=== PATIENT | female | born 1955 | race Caucasian/White ===

== ENCOUNTER 2023-10-28 12:35 | Emergency (ER) | payer MEDICAID, MEDICARE ==
[2023-10-28 12:53] VITALS: BP 150/61; PULSE 74; RESP 18; TEMP 97.9
--- NOTE | 2023-10-28 15:10 | ED ---
General Adult HPI - General Source: patient, RN notes reviewed Mode of arrival: ambulatory Limitations: no limitations <Deion Guerrero - Last Filed: 10/28/23 15:08> - General Source: patient, RN notes reviewed Mode of arrival: ambulatory Limitations: no limitations <Ciara Gallardo - Last Filed: 10/28/23 19:10> <Jadon Curtis - Last Filed: 10/28/23 21:41> - General Chief complaint: Recheck/Abnormal Lab/Rx Stated complaint: Abn Labs,sent pcp Time Seen by Provider: 10/28/23 15:09 - History of Present Illness Initial comments: 68-year-old female presents emergency department with chief complaint of abnormal labs. She states that she has been having issues with some shortness of breath and leg swelling which has been improving ever since she was placed on Lasix. Patient states that she had some blood work which was abnormal but she is unsure what was abnormal but was called today and advised to go to the emergency department here for further evaluation. She denies any current chest pain she denies any fevers or chills (Deion Guerrero) 68-year-old female presents to the emergency department for evaluation of abnormal laboratory studies. Patient states that her primary care provider sent her to the emergency department today for further evaluation of abnormal labs. She is unsure of which lab values were abnormal. She states that it may be for evaluation of PE. Patient states that she was experiencing shortness of breath and bilateral lower extremity edema back in July and was placed on Lasix following this. She states that she has noticed significant improvement with this. She denies any current shortness of breath, chest pain. She does admit to some lower extremity edema. (Ciara Gallardo) - Related Data Home Medications Medication Instructions Recorded Confirmed Atorvastatin [Lipitor] 20 mg PO HS 05/31/15 06/04/15 Metoprolol Succinate [Toprol XL] 50 mg PO DAILY 05/31/15 06/04/15 Ergocalciferol [Vitamin D2 1 cap PO AC-SUPPER 06/04/15 06/04/15 (DRISDOL)] Allergies Allergy/AdvReac Type Severity Reaction Status Date / Time No Known Allergies Allergy Verified 10/28/23 12:50 Review of Systems ROS Other: All systems not noted in ROS Statement are negative. <Deion Guerrero - Last Filed: 10/28/23 15:08> ROS Other: All systems not noted in ROS Statement are negative. <Ciara Gallardo - Last Filed: 10/28/23 19:10> ROS Other: All systems not noted in ROS Statement are negative. <Jadon Curtis - Last Filed: 10/28/23 21:41> ROS Statement: Those systems with pertinent positive or pertinent negative responses have been documented in the HPI. Past Medical History Past Medical History: Hyperlipidemia, Hypertension History of Any Multi-Drug Resistant Organisms: None Reported Past Surgical History: Section Additional Past Surgical History / Comment(s): c-sections time 3 Past Anesthesia/Blood Transfusion Reactions: No Reported Reaction Past Psychological History: No Psychological Hx Reported Past Alcohol Use History: None Reported Past Drug Use History: None Reported <Deion Guerrero - Last Filed: 10/28/23 15:08> General Exam Limitations: no limitations <Deion Guerrero - Last Filed: 10/28/23 15:08> Limitations: no limitations General appearance: alert, in no apparent distress Head exam: Present: atraumatic, normocephalic, normal inspection Eye exam: Present: normal appearance, PERRL, EOMI. Absent: scleral icterus, conjunctival injection, periorbital swelling ENT exam: Present: normal exam, mucous membranes moist Neck exam: Present: normal inspection. Absent: tenderness, meningismus, lymphadenopathy Respiratory exam: Present: normal lung sounds bilaterally. Absent: respiratory distress, wheezes, rales, rhonchi, stridor Cardiovascular Exam: Present: regular rate, normal rhythm, normal heart sounds. Absent: systolic murmur, diastolic murmur, rubs, gallop, clicks GI/Abdominal exam: Present: soft, normal bowel sounds. Absent: distended, tenderness, guarding, rebound, rigid Extremities exam: Present: normal inspection, full ROM, normal capillary refill, pedal edema, other (2+ lower extremity edema). Absent: tenderness, joint swelling, calf tenderness Back exam: Present: normal inspection Neurological exam: Present: alert, oriented X3 Psychiatric exam: Present: normal affect, normal mood Skin exam: Present: warm, dry, intact, normal color. Absent: rash <Ciara Gallardo - Last Filed: 10/28/23 19:10> - General Exam Comments Initial Comments: Visual Physical Exam Vital signs reviewed General: Well-appearing, nontoxic, no acute distress. Head: Normocephalic, atraumatic Eyes: PERRLA, EOMI ENT: Airway patent Chest: Nonlabored breathing Skin: No visual rash, normal skin tone Neuro: Alert and oriented 3 Musculoskeletal: No gross abnormalities (Deion Guerrero) Course Vital Signs 10/28/23 12:48 Temperature 97.9 F Pulse Rate 74 Respiratory 18 Rate Blood Pressure 150/61 O2 Sat by Pulse 94 L Oximetry Medical Decision Making <Deion Guerrero - Last Filed: 10/28/23 15:08> - Lab Data Result diagrams: 10/28/23 15:08 <Ciara Gallardo - Last Filed: 10/28/23 19:10> - Lab Data Result diagrams: 10/28/23 15:08 10/28/23 19:37 <Jadon Curtis - Last Filed: 10/28/23 21:41> - Medical Decision Making I completed the quick note portion of this chart signed Deion Guerrero PA-C (Deion Guerrero) Was pt. sent in by a medical professional or institution (BRIDGETT Caruso, RECORD SYSTEMS ANALYST, urgent care, hospital, or longterm...) When possible be specific @ -Sent in by her PCP Did you speak to anyone other than the patient for history (EMS, parent, family, police, friend...)? What history was obtained from this source @ -[No] Did you review nursing and triage notes (agree or disagree)? Why? @ -[I reviewed and agree with nursing and triage notes] Were old charts reviewed (outside hosp., previous admission, EMS record, old EKG, old radiological studies, urgent care reports/EKG's, longterm records)? Report findings @ -[No old charts were reviewed] Differential Diagnosis (chest pain, altered mental status, abdominal pain women, abdominal pain men, vaginal bleeding, weakness, fever, dyspnea, syncope, headache, dizziness, GI bleed, back pain, seizure, CVA, palpatations, mental health, musculoskeletal)? @ -[Differential Dyspnea: Coronary syndrome, arrhythmia, tamponade, asthma, COPD, pulmonary embolism, pneumonia, pneumothorax, pulmonary effusion, anaphylaxis, diabetic ketoacidosis, flailed chest, pulmonary contusion, diaphragmatic rupture, anemia, neuromuscular, this is not meant to be an all-inclusive list. ] EKG interpreted by me (3pts min.). @ -EKG at 1650 shows sinus rhythm rate 69, ID 137, QRS 101, QTQTc [id number] X-rays interpreted by me (1pt min.). @ -[None done] CT interpreted by me (1pt min.). @ -[None done] U/S interpreted by me (1pt. min.). @ -[None done] What testing was considered but not performed or refused? (CT, X-rays, U/S, labs)? Why? @ -[None] What meds were considered but not given or refused? Why? @ -[None] Did you discuss the management of the patient with other professionals (regis chris i.e. , PA, RECORD SYSTEMS ANALYST, lab, RT, psych nurse, social services director, fusing line inspector, teacher, financial services officer, case operator)? Give summary @ -[No] Was smoking cessation discussed for >3mins.? @ -[No] Was critical care preformed (if so, how long)? @ -[No] Were there social determinants of health that impacted care today? How? (Homelessness, low income, unemployed, alcoholism, drug addiction, transportation, low edu. Level, literacy, decrease access to med. care, fci, rehab)? @ -[No] Was there de-escalation of care discussed even if they declined (Discuss DNR or withdrawal of care, Hospice)? DNR status @ -[No] What co-morbidities impacted this encounter? (DM, HTN, Smoking, COPD, CAD, Cancer, CVA, ARF, Chemo, Hep., AIDS, mental health diagnosis, sleep apnea, morbid obesity)? @ -[None] Was patient admitted / discharged? Hospital course, mention meds given and route, prescriptions, significant lab abnormalities, going to OR and other pertinent info. @ -[Patient presented to the emergency department for evaluation of abnormal lab values sent in by her primary care provider. Patient denies any current symptoms including chest pain, shortness of breath. Laboratory studies obtained.CBC shows WBC 3.9, hemoglobin 12.6, platelets 88; coagulation studies and D-dimer is elevated at 2.93. Troponin 0.012. Patient was advised on elevated D-dimer and need for CT angio of chest. CMP pending along with CT at sign out to Dr. Curtis at 1900] Undiagnosed new problem with uncertain prognosis? @ -[No] Drug Therapy requiring intensive monitoring for toxicity (Heparin, Nitro, Insulin, Cardizem)? @ -[No] Were any procedures done? @ -[No] Diagnosis/symptom? @ -[default] Acute, or Chronic, or Acute on Chronic? @ -[default] Uncomplicated (without systemic symptoms) or Complicated (systemic symptoms)? @ -[default] Side effects of treatment? @ -[No] Exacerbation, Progression, or Severe Exacerbation? @ -[No] Poses a threat to life or bodily function? How? (Chest pain, USA, VT, pneumonia, PE, COPD, DKA, ARF, appy, cholecystitis, CVA, Diverticulitis, Homicidal, Suicid al, threat to staff... and all critical care pts) @ -[No] (Ciara Gallardo) Signed out to me pending results of CT imaging. Patient was receiving outpatient workup for dyspnea and as part of that workup received a D-dimer. It returned positive sometime earlier this week or last week. Presents for CT imaging to rule out pulmonary embolism at this time. Patient was diagnosed with CHF recently and has been compliant with all of her medications. She is overall feeling improved and is lost weight. She denies any acute chest pain, shortness of breath, cough, fevers, chills or symptoms. Presents for further evaluation. We do not have access to her her chart. Signed out to me pending results of imaging. Workup thus far shows mildly decreased platelets. D-dimer is 2.93. Labs otherwise unremarkable. Chest x-ray is interpreted myself reveals no obvious acute cardio or pulmonary process. Lower extremity venous duplexes as interpreted by myself reveals no evidence of DVT. Chest CTA is interpreted by myself reveals no evidence of pulmonary embolism. Radiology does note a right lower lung pulmonary nodule as well as findings concerning for esophageal varices. Both of which are incidental findings. I discussed the results with the patient. She will be discharged home at this time. She remains asymptomatic. She was in agreement this plan. Recommended follow-up for possible EGD for esophageal varices as well as repeat imaging in the next 3 months for the pulmonary nodule. She was in agreement this plan. She will be discharged home at this time. Diagnosis/symptom? @ -Paraesophageal varices, pulmonary nodule, elevated D-dimer Acute, or Chronic, or Acute on Chronic? @ -Acute Uncomplicated (without systemic symptoms) or Complicated (systemic symptoms)? @ -Uncomplicated Side effects of treatment? @ -None Exacerbation, Progression, or Severe Exacerbation] @ -No Poses a threat to life or bodily function? @ -Unlikely (Jadon Curtis) - Lab Data Lab Results 10/28/23 10/28/23 10/28/23 Range/Units 15:08 16:50 16:50 WBC 3.9 (3.8-10.6) k/uL RBC 4.09 (3.80-5.40) m/uL Hgb 12.6 (11.4-16.0) gm/dL Hct 37.8 (34.0-46.0) % MCV 92.4 (80.0-100.0) fL MCH 30.7 (25.0-35.0) pg MCHC 33.2 (31.0-37.0) g/dL RDW 15.2 (11.5-15.5) % Plt Count 88 L (150-450) k/uL MPV 8.6 Neutrophils % 61 % Lymphocytes % 24 % Monocytes % 8 % Eosinophils % 4 % Basophils % 0 % Neutrophils # 2.4 (1.3-7.7) k/uL Lymphocytes # 0.9 L (1.0-4.8) k/uL Monocytes # 0.3 (0-1.0) k/uL Eosinophils # 0.2 (0-0.7) k/uL Basophils # 0.0 (0-0.2) k/uL Manual Slide Review Performed PT 13.6 H (10.0-12.5) sec INR 1.3 H (<1.2) APTT 23.2 (22.0-30.0) sec D-Dimer 2.93 H (<0.60) mg/L FEU Sodium (137-145) mmol/L Potassium (3.5-5.1) mmol/L Chloride (98-107) mmol/L Carbon Dioxide (22-30) mmol/L Anion Gap mmol/L BUN (7-17) mg/dL Creatinine (0.52-1.04) mg/dL Est GFR (CKD-EPI)AfAm (>60 ml/min/1.73 sqM) Est GFR (CKD-EPI)NonAf (>60 ml/min/1.73 sqM) Glucose (74-99) mg/dL Calcium (8.4-10.2) mg/dL Magnesium (1.6-2.3) mg/dL Total Bilirubin (0.2-1.3) mg/dL AST (14-36) U/L ALT (4-34) U/L Alkaline Phosphatase (38-126) U/L Troponin I 0.012 (0.000-0.034) ng/mL NT-Pro-B Natriuret Pep pg/mL Total Protein (6.3-8.2) g/dL Albumin (3.5-5.0) g/dL 10/28/23 Range/Units 19:37 WBC (3.8-10.6) k/uL RBC (3.80-5.40) m/uL Hgb (11.4-16.0) gm/dL Hct (34.0-46.0) % MCV (80.0-100.0) fL MCH (25.0-35.0) pg MCHC (31.0-37.0) g/dL RDW (11.5-15.5) % Plt Count (150-450) k/uL MPV Neutrophils % % Lymphocytes % % Monocytes % % Eosinophils % % Basophils % % Neutrophils # (1.3-7.7) k/uL Lymphocytes # (1.0-4.8) k/uL Monocytes # (0-1.0) k/uL Eosinophils # (0-0.7) k/uL Basophils # (0-0.2) k/uL Manual Slide Review PT (10.0-12.5) sec INR (<1.2) APTT (22.0-30.0) sec D-Dimer (<0.60) mg/L FEU Sodium 139 (137-145) mmol/L Potassium 3.9 (3.5-5.1) mmol/L Chloride 110 H (98-107) mmol/L Carbon Dioxide 23 (22-30) mmol/L Anion Gap 6 mmol/L BUN 14 (7-17) mg/dL Creatinine 0.43 L (0.52-1.04) mg/dL Est GFR (CKD-EPI)AfAm >90 (>60 ml/min/1.73 sqM) Est GFR (CKD-EPI)NonAf >90 (>60 ml/min/1.73 sqM) Glucose 90 (74-99) mg/dL Calcium 8.8 (8.4-10.2) mg/dL Magnesium 1.6 (1.6-2.3) mg/dL Total Bilirubin 2.3 H (0.2-1.3) mg/dL AST 51 H (14-36) U/L ALT 30 (4-34) U/L Alkaline Phosphatase 82 (38-126) U/L Troponin I (0.000-0.034) ng/mL NT-Pro-B Natriuret Pep 64 pg/mL Total Protein 6.8 (6.3-8.2) g/dL Albumin 3.3 L (3.5-5.0) g/dL Disposition <Deion Guerrero - Last Filed: 10/28/23 15:08> <Ciara Gallardo - Last Filed: 10/28/23 19:10> Is patient prescribed a controlled substance at d/c from ED?: No Time of Disposition: 21:15 <Jadon Curtis - Last Filed: 10/28/23 21:41> Clinical Impression: Pulmonary nodule, Esophageal varices, Elevated d-dimer Disposition: HOME SELF-CARE Condition: Good Additional Instructions: Follow up with your PCP. You need repeat CXR in 3 months for a Right lower lobe pulmonary nodule. You should also receive an EGD for scoping to evaluate esophageal varices. Referrals: Heather Aguilar MD [Primary Care Provider] - 1-2 days
--- NOTE | 2023-10-28 16:18 | XR ---
EXAMINATION TYPE: XR chest 2V DATE OF EXAM: 10/28/2023 COMPARISON: None HISTORY: 68-year-old female shortness of breath, difficulty breathing, abnormal labs TECHNIQUE: PA and lateral views FINDINGS: Heart mildly enlarged. Mild interstitial prominence. No consolidation or pleural effusion. IMPRESSION: Borderline heart size. There may be early pulmonary vascular congestion. No focal infiltrate or pulmo nary edema.
[2023-10-28 17:16] LABS: Basophils % (A) 0 %; Eosinophils # (A) 0.2 k/uL (0-0.7); Eosinophils % (A) 4 %; HCT 37.8 % (34.0-46.0); HGB 12.6 gm/dL (11.4-16.0); Lymphocytes # (A) 0.9 k/uL (1.0-4.8); Lymphocytes % (A) 24 %; MCH 30.7 pg (25.0-35.0); MCHC 33.2 g/dL (31.0-37.0); MCV 92.4 fL (80.0-100.0); Mean Platelet Volume 8.6; Monocytes # (A) 0.3 k/uL (0-1.0); Monocytes % (A) 8 %; Neutrophils # (A) 2.4 k/uL (1.3-7.7); Neutrophils % (A) 61 %; RBC 4.09 m/uL (3.80-5.40); RDW 15.2 % (11.5-15.5); WBC 3.9 k/uL (3.8-10.6)
[2023-10-28 17:29] LABS: INR 1.3 (<1.2); Partial Thromboplastin Time 23.2 sec (22.0-30.0); Prothrombin Time 13.6 sec (10.0-12.5)
[2023-10-28 17:47] LABS: Platelet Count 88 k/uL (150-450)
[2023-10-28 20:00] LABS: ALT 30 U/L (4-34); AST 51 U/L (14-36); African American GFR (CKD) >90 (>60 ml/min/1.73 sqM); Albumin 3.3 g/dL (3.5-5.0); Alkaline Phosphatase 82 U/L (38-126); Anion Gap 6 mmol/L; Blood Urea Nitrogen 14 mg/dL (7-17); Calcium 8.8 mg/dL (8.4-10.2); Carbon Dioxide 23 mmol/L (22-30); Chloride 110 mmol/L (98-107); Glucose 90 mg/dL (74-99); Magnesium 1.6 mg/dL (1.6-2.3); Non-African American GFR(CKD) >90 (>60 ml/min/1.73 sqM); Potassium 3.9 mmol/L (3.5-5.1); Sodium 139 mmol/L (137-145); Total Bilirubin 2.3 mg/dL (0.2-1.3); Total Protein 6.8 g/dL (6.3-8.2)
[2023-10-28 20:05] LABS: NT-Pro-B-Type Natriuretic Pept 64 pg/mL
--- NOTE | 2023-10-28 20:35 | US ---
EXAMINATION TYPE: US venous doppler duplex LE DATE OF EXAM: 10/28/2023 8:15 PM COMPARISON: NONE CLINICAL INDICATION: Female, 68 years old with history of elevated dimer, eval for dvt; elevated d di [place]. No hx of DVT SIDE PERFORMED: Bilateral TECHNIQUE: The lower extremity deep venous system is examined utilizing real time linear array sonog ruben with graded compression, doppler sonography and color-flow sonography. VESSELS IMAGED: Common Femoral Vein Deep Femoral Vein Greater Saphenous Vein * Femoral Vein Popliteal Vein Small Saphenous Vein * Proximal Calf Veins (* superficial vessels) Right Leg: No evidence for DVT Left Leg: No evidence for DVT IMPRESSION: Grayscale, color doppler, spectral doppler imaging performed of the deep veins of the lo wer extremities. There is normal flow, compressibility, vascular waveforms.
--- NOTE | 2023-10-28 21:01 | CT ---
EXAMINATION TYPE: CT chest angio for PE CT DLP: 553.7 mGycm, Automated exposure control for dose reduction was used. DATE OF EXAM: 10/28/2023 8:41 PM COMPARISON: Chest radiograph from same day. Multiple CTs of the chest with most recent on . CLINICAL INDICATION:Female, 68 years old with history of elevated d=dimer; elevated d-dimer TECHNIQUE/CONTRAST: CTA scan of the thorax is performed with IV Contrast, patient injected with 75ml mL of Isovue 370, OK P images are created and reviewed these are created on a separate workstation.. FINDINGS: Pulmonary Artery: There is no evidence for a filling defect within the pulmonary vasculature to sugge st acute pulmonary embolism. The pulmonary artery is of normal size. Lungs/Pleura: No evidence of focal consolidation, pleural effusion or pneumothorax. Right minor fissu re intrafissural lymph node series 411 image 75, right lower lobe superior segment 6 mm pulmonary nod ule. Airway: Large airways are patent. Heart: Aortic valve leaflet ossifications. Coronary artery calcifications. The heart is mildly enlarg ed for size. Vasculature: No evidence of aortic aneurysm. Mediastinum: No gross evidence of adenopathy. Musculoskeletal: No acute osseous abnormalities, anterior longitudinal ligament Soft Tissues: Unremarkable. Lower neck: No significant findings. Upper Abdomen: Cirrhotic shrunken liver with nodular borders. Paraesophageal varices and upper abdomi nal varices are present. The spleen is prominent measuring 13.6 cm in AP dimension. IMPRESSION: 1. No evidence of pulmonary embolism. 2. Hepatic cirrhosis with evidence of portal hypertension with paraesophageal varices and prominent s pleen. 3. Right lower lobe superior segment 6 mm pulmonary nodule. Consider short-term follow-up in 6-12 mon ths to ensure stability. Follow up recommendations for incidental pulmonary nodules, if there are any, are per [employer] or [employer].
== END 2023-10-28 21:51 | disposition home or self-care (01) ==
LOC: EC 12:35
DX: R91.1 Solitary pulmonary nodule (principal); I85.10 Secondary esophageal varices without bleeding; R79.1 Abnormal coagulation profile; I45.10 Unspecified right bundle-branch block; K74.60 Unspecified cirrhosis of liver; K76.6 Portal hypertension; E78.5 Hyperlipidemia, unspecified; I10 Essential (primary) hypertension; Z79.899 Other long term (current) drug therapy
CPT/HCPCS: 36415; 93005; 85379; 83880; 80053; 83735; 84484; 85025; 85610; 85730; 71046; 93970; 71275; 99284; Q9967